=== PATIENT | male | born 1995 | race Two or more races ===

== ENCOUNTER 2021-07-02 15:06 | Outpatient (CLI) | payer OTHER | END 2021-07-02 15:09 | disposition home or self-care (01) | LOC: EDBD 15:06 → LAB 15:06 | DX: Z20.818 Contact with and (suspected) exposure to other bacterial communicable diseases (principal); Z20.828 Contact with and (suspected) exposure to other viral communicable diseases ==

== ENCOUNTER → 2021-07-15 15:00 | Outpatient (CLI) | payer OTHER | END | disposition home or self-care (01) | LOC: PPH VACUNA 15:00 | DX: Z23 Encounter for immunization (principal) ==

== ENCOUNTER 2021-07-16 10:18 | Outpatient (CLI) | payer OTHER | END 2021-07-16 10:22 | disposition home or self-care (01) | LOC: LAB 10:18 | DX: Z20.818 Contact with and (suspected) exposure to other bacterial communicable diseases (principal); Z20.828 Contact with and (suspected) exposure to other viral communicable diseases ==